=== PATIENT | female | born 1965 | race Caucasian/White ===

== ENCOUNTER → 2025-06-05 | Outpatient (CLI) | payer MEDICAID | LOC: M RAD 14:32 | PROVIDERS: ATTEND Physician Assistant | DX: I65.23 Occlusion and stenosis of bilateral carotid arteries (principal) ==

== ENCOUNTER → 2025-08-06 | Outpatient (CLI) | payer MEDICAID ==
[~2025-08-06] MED LIST: ISOVUE-370 76% 100 ML VIAL As Ordered ONE
== END ==
LOC: M RAD 13:36
PROVIDERS: ATTEND Physician Assistant
DX: I65.23 Occlusion and stenosis of bilateral carotid arteries (principal)
CPT/HCPCS: 70496; 70498; 82565; Q9967